=== PATIENT | male | born 1965 | race Caucasian/White ===

== ENCOUNTER 2023-08-13 19:51 | Inpatient (IN) | payer SELFPAY ==
[2023-08-13 20:28] VITALS: BMI 19.8
[2023-08-13] MEDS ORDERED: BISMUTH SUBSALICYLATE 524 MG/30 ML PO PRN (22:44)
[2023-08-13] MEDS ORDERED: MAGNESIUM HYDROX 2400MG/30ML ORAL SUSPENSION 30 ML CUP PO PRN (22:44)
[2023-08-13] MEDS ORDERED: NALOXONE HCL 0.4 MG/ML VIAL IM PRN (22:44)
[2023-08-13] MEDS ORDERED: POLYETHYLENE GLYCOL (HEALTHYLAX) 3350 17 GM PACKET PO PRN (22:44)
[2023-08-13] MEDS ORDERED: BENZOCAINE/MENTHOL (CHLORASEPTIC ) LOZENGE MM PRN (22:44)
[2023-08-13] MEDS ORDERED: NALOXONE HCL (KLOXXADO) 8 MG SPRAY NS PRN (22:44)
[2023-08-13] MEDS ORDERED: MAG HYDROX/AL HYDROX/SIMETH 30 ML UNIT-DOSE CUP PO PRN (22:44)
[2023-08-13] MEDS ORDERED: ONDANSETRON *ODT* 4 MG TABLET SL PRN (22:44)
[2023-08-13] MEDS ORDERED: DICYCLOMINE HCL 10 MG CAPSULE PO PRN (22:44)
[2023-08-13] MEDS ORDERED: BENZONATATE 200 MG CAPSULE PO PRN (22:44)
[2023-08-13] MEDS ORDERED: LOPERAMIDE HCL 2 MG CAPSULE PO PRN (22:44)
[2023-08-13] MEDS ORDERED: IBUPROFEN 400 MG TABLET (FP) PO PRN (22:44)
[2023-08-13] MEDS ORDERED: guaiFENesin 600 MG TABLET.ER (FP) PO PRN (22:44)
[2023-08-13] MEDS: hydrOXYzine PAMOATE 25 MG CAPSULE (FP) PO PRN (23:35)
[2023-08-13] MEDS: IBUPROFEN 600 MG TABLET (FP) PO PRN (23:35)
[2023-08-13] MEDS: METHOCARBAMOL 500 MG TABLET PO PRN (23:35)
[2023-08-14] MEDS: ACETAMINOPHEN 325 MG TABLET (FP) PO PRN ×2 (02:30→17:44)
[2023-08-14] MEDS ORDERED: methaDONE HCL 10 MG TABLET PO ONE (09:24)
[2023-08-14] MEDS: diazePAM 5 MG TABLET PO SCH ×3 (10:55→22:03)
[2023-08-14] MEDS: PRENATAL VITAMINS W/ FOLIC ACID TABLET (FP) PO SCH (10:55)
[2023-08-14 11:17] LABS: HEMATOCRIT 43.2 % (35.4-49); MCH 28.1 pg (25.7-33.7); MCHC 32.3 g/dl (32.0-35.9); MEAN CELL VOLUME 87.1 fl (80-96); PLATELET COUNT 286 10^3/uL (134-434); RBC 4.96 M/mm3 (4.00-5.60); RDW 14.8 % (11.9-15.9); WHITE BLOOD COUNT 9.3 K/mm3 (4.0-10.0)
[2023-08-14 11:58] LABS: CHLORIDE 107 mmol/L (98-107); POTASSIUM 4.3 mmol/L (3.5-5.1); SODIUM 142 mmol/L (136-145)
[2023-08-14 12:01] LABS: ALBUMIN 3.4 g/dl (3.4-5.0); ANION GAP 6 mmol/L (4-13); BLOOD UREA NITROGEN 22.8 mg/dL (7-18); CALCIUM 9.6 mg/dL (8.5-10.1); CO2 29 mmol/L (21-32); GLUCOSE,RANDOM 99 mg/dL (74-106)
[2023-08-14 12:05] LABS: SGOT/AST 12 U/L (15-37); SGPT/ALT 21 U/L (13-61)
[2023-08-14 12:07] LABS: BILIRUBIN,TOTAL 0.5 mg/dL (0.2-1); TOT PROT 6.6 g/dl (6.4-8.2)
[2023-08-14 12:08] LABS: ALK PHOS 78 U/L (45-117)
[2023-08-14] MEDS: diazePAM 5 MG TABLET PO PRN (14:02)
[2023-08-14] MEDS ORDERED: MELATONIN 5 MG TABLETS PO SCH (22:00)
[2023-08-14] MEDS ORDERED: THIAMINE HCL 100 MG TABLET (FP) PO SCH (22:00)
[2023-08-14] MEDS: METHOCARBAMOL 500 MG TABLET PO PRN (22:03)
[2023-08-14] MEDS: IBUPROFEN 600 MG TABLET (FP) PO PRN (22:04)
[2023-08-15] MEDS: diazePAM 5 MG TABLET PO PRN (00:53)
[2023-08-15] MEDS: hydrOXYzine PAMOATE 25 MG CAPSULE (FP) PO PRN ×2 (01:22→02:00)
[2023-08-15] MEDS: ACETAMINOPHEN 325 MG TABLET (FP) PO PRN (02:15)
[2023-08-15] MEDS ORDERED: hydrOXYzine PAMOATE 25 MG CAPSULE (FP) PO ONE (02:22)
[2023-08-15] MEDS: diazePAM 5 MG TABLET PO SCH ×2 (05:36→10:30)
[2023-08-15] MEDS: METHOCARBAMOL 500 MG TABLET PO PRN (05:36)
[2023-08-15 09:09] VITALS: BP 143/85; PULSE 87; RESP 18; TEMP 97.5
[2023-08-15] MEDS ORDERED: methaDONE HCL 40 MG DISPERSABLE TABLET PO SCH (09:45)
[2023-08-15] MEDS: PRENATAL VITAMINS W/ FOLIC ACID TABLET (FP) PO SCH (10:29)
[2023-08-16] MEDS ORDERED: diazePAM 5 MG TABLET PO SCH (06:00)
[2023-08-17] MEDS ORDERED: diazePAM 5 MG TABLET PO SCH (06:00)
[2023-08-18] MEDS ORDERED: diazePAM 5 MG TABLET PO ONE (06:00)
== END 2023-08-15 11:00 | disposition left against medical advice (07) | DRG 770 ==
LOC: YASAS 19:51 → Y3N 22:34
PROVIDERS: ADMIT Allergy & Immunology; ATTEND Allergy & Immunology
PROC: HZ2ZZZZ Detoxification Services for Substance Abuse Treatment (ICD-10-PCS; principal; 2023-08-13)
DX: F10.230 Alcohol dependence with withdrawal, uncomplicated (principal); F11.20 Opioid dependence, uncomplicated; Z28.310 Unvaccinated for COVID-19
CPT/HCPCS: 36415; 80053; 80307; 85027; 86780; 87635; 93005; 93010